=== PATIENT | male | born 1995 | race Caucasian/White ===

== ENCOUNTER 2017-11-14 21:52 | Emergency (ER) | payer OTHER ==
[2017-11-14 22:05] VITALS: BP 118/72; PULSE 84; TEMP 99; BMI 24.3
--- NOTE | 2017-11-15 00:05 | PDOC ---
History of Present Illness - General Chief Complaint: Injury Stated Complaint: LACERATION LEFT THUMB AT WORK Time Seen by Provider: 11/14/17 21:56 - History of Present Illness Initial Comments: This otherwise healthy 22-year-old man presents with laceration to the dorsal surface of the base of his left thumb. 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 While he was using a large, sharp cooking knife, he was accidentally bumped by a coworker and the blade of the knife cut his skin. Bleeding has been controlled by direct pressure. Patient denies paresthesias/numbness or weakness of the thumb. No other injury sustained. Patient is unsure when his last tetanus immunization was given but he will check with engineering manager regarding his most recent booster. No history of poor wound healing/immunocompromise/resistant organism colonization or infection. Past History - Past Medical History Allergies/Adverse Reactions: Allergies Allergy/AdvReac Type Severity Reaction Status Date / Time No Known Allergies Allergy Verified 11/14/17 21:57 Home Medications: Ambulatory Orders NK [No Known Home Medication] 11/14/17 COPD: No Other medical history: DENIES - Immunization History Immunization Up to Date: Yes - Suicide/Smoking/Psychosocial Hx Smoking History: Never smoked Have you smoked in the past 12 months: No Number of Cigarettes Smoked Daily: 0 Information on smoking cessation initiated: No Hx Alcohol Use: Yes Drug/Substance Use Hx: No Substance Use Type: None Review of Systems - Review of Systems Able to Perform ROS?: Yes Comments:: 12 point review of systems is negative except for what is noted in the history of present illness *Physical Exam - Vital Signs Last Vital Signs Temp Pulse Resp BP Pulse Ox 99 F 84 16 118/72 99 11/14/17 21:58 11/14/17 21:58 11/14/17 21:58 11/14/17 21:58 11/14/17 21:58 - Physical Exam Comments: GENERAL: HEAD: Normal with no signs of trauma. EYES: PERRLA, EOMI, sclera anicteric, conjunctiva clear. ENT: Ears normal, nares patent, oropharynx clear without exudates. Dry mucous membranes. NECK: Normal range of motion, supple without lymphadenopathy, JVD, or masses. LUNGS: Breath sounds equal, clear to auscultation bilaterally. No wheezes, and no crackles. HEART:Regular rate and rhythm, normal S1 and S2 without murmur, rub or gallop. ABDOMEN:.normal bowel sounds No guarding,tenderness or rebound.No masses No distention. EXTREMITIES: Normal range of motion, no edema. No clubbing or cyanosis. No erythema, or tenderness. NEUROLOGICAL: Cranial nerves II through XII grossly intact. Normal speech. No focal neurological deficits. MUSCULOSKELETAL: Back non-tender to palpation, no CVA tenderness SKIN: 2.5 cm linear, vertical full-thickness, nonbleeding laceration of the dorsal thumb, just proximal to the MCP joint Motor/sensory functioning intact; distal digit is warm and dry with excellent capillary refill No other lacerations or other injuries present except for a tiny (1 mm) abrasion just to the ulnar side of mid laceration Procedures - Laceration/Wound Repair Left Proximal Dorsal 1st digit Wound Length: to 2.5 cm Wound Explored: clean Wound's Depth, Shape: linear Irrigated w/ Saline: Yes Betadine Prep: No (Hibiclens/ethanol) Anesthesia: 1% Lidocaine Amount of Anesthetic (ccs): 2 Wound Repaired With: Sutures (none) Suture Size/Type: 5:0 Number of Sutures: 5 Layer Closure: No Sterile Dressing Applied: Yes Splint Applied: No Sling Applied: No Progress: Dorsum of the left thumb prepped using Hibiclens/ethanol and sterilely draped. Wound anesthetized with 2 mL of 1% lidocaine. Wound irrigated with 30 mL of sterile normal saline. Depth of wound carefully examined. Wound is full- thickness but there is no tendon or vascular damage evident. Wound edges closely apposed and sutured with 5 interrupted sutures of 5-0 nylon. Bacitracin and sterile gauze dressing applied. Patient tolerated procedure well *DC/Admit/Observation/Transfer Diagnosis at time of Disposition: Laceration of left thumb Qualifiers: Encounter type: initial encounter Damage to nail status: without damage Foreign body presence: without foreign body Qualified Code(s): S61.012A - Laceration without foreign body of left thumb without damage to nail, initial encounter - Discharge Dispostion Disposition: HOME Condition at time of disposition: Stable - Referrals - Patient Instructions Printed Discharge Instructions: How to Care for a Laceration After Repair Additional Instructions: Elevate left hand as much as possible over the next 24 hours No work tomorrow Keep original dressing in place, as dry as possible, for 2 days After first 2 days, protective dressing as needed during the day/open at night Can wet area briefly after 2 days, but no immersion until sutures removed Have sutures removed in one week Return to ER or see your doctor if area becomes red/swollen/painful - Post Discharge Activity Forms/Work/School Notes: Back to Work
== END 2017-11-15 00:53 | disposition home or self-care (01) ==
LOC: FER 21:52
PROC: 0HQGXZZ Repair Left Hand Skin, External Approach (ICD-10-PCS; principal; 2017-11-14)
DX: S61.012A Laceration without foreign body of left thumb without damage to nail, initial encounter (principal); W26.0XXA Contact with knife, initial encounter; Y93.G3 Activity, cooking and baking; Y92.9 Unspecified place or not applicable; Y99.0 Civilian activity done for income or pay
CPT/HCPCS: 99281-25

== ENCOUNTER 2020-02-07 10:29 | Emergency (ER) | payer OTHER ==
[2020-02-07 10:34] VITALS: BP 130/90; PULSE 92; TEMP 98.5; BMI 24.3
--- NOTE | 2020-02-07 11:02 | PDOC ---
Post Exposure HPI - General Chief Complaint: Blood/Body Fluid Exposure SJR Stated Complaint: EXPOSURE Time Seen by Provider: 02/07/20 10:34 History Source: Patient Exam Limitations: No Limitations - History of Present Illness Initial Comments: 02/07/20 10:56 HISTORY OF PRESENT ILLNESS: 24-year-old otherwise healthy male presents emergency department for evaluation of blood exposure. Patient works at the [employer] department here at [facility] and while moving a body at the [facility] had bloody fluid splashed off the body and onto his face. Patient reports he was wearing a surgical face mask at the time but no eye shield. Patient is unsure if he had contact to his eyes. Patient reports all the blood was on the sheet the patient was lying on. Source patient has negative hepatitis B and C with unknown HIV status. No recent travel or sick contacts. PAST MEDICAL HISTORY: Denies past medical history SURGICAL HISTORY: Denies ALLERGIES: No known drug allergies REVIEW OF SYSTEMS General/Constitutional: Denies fever or chills. Denies weakness, weight change. HEENT: Denies change in vision. Denies ear pain or discharge. Denies sore throat. Cardiovascular: Denies chest pain or shortness of breath. Respiratory: Denies cough, wheezing, or hemoptysis. Gastrointestinal: Denies nausea, vomiting, diarrhea or constipation. Denies rectal bleeding. Genitourinary: Denies dysuria, frequency, or change in urination. Musculoskeletal: Denies joint or muscle swelling or pain. Denies neck or back pain. Skin and breasts: Denies rash or easy bruising. Neurologic: Denies headache, vertigo, loss of consciousness, or loss of sensation. Psychiatric: Denies depression or anxiety. Endocrine: Denies increased thirst. Denies abnormal weight change. Hematologic/Lymphatic: Denies anemia, easy bleeding, or history of blood clots. Allergic/Immunologic: Denies hives or skin allergy. Denies latex allergy. PHYSICAL EXAM General Appearance: Well-appearing, appropriately dressed. No apparent distress, no intoxication. HEENT: EOMI, PERRLA, normal ENT inspection, normal voice, TMs normal, pharynx normal. No conjunctival pallor. No photophobia, scleral icterus. Integumentary: Appropriate color, dry, warm. No cyanosis, erythema, jaundice or rash Exposed Location: Bilateral: Face Assessing Significant Risk PEP: Yes Visibily Bloody Fluid Past History - Medical History Allergies/Adverse Reactions: Allergies Allergy/AdvReac Type Severity Reaction Status Date / Time No Known Allergies Allergy Verified 11/14/17 21:57 Home Medications: Ambulatory Orders NK [No Known Home Medication] 11/14/17 COPD: No - Immunization History Immunization Up to Date: Yes - Psycho-Social/Smoking History Smoking History: Never smoked Have you smoked in the past 12 months: No Number of Cigarettes Smoked Daily: 0 - Substance Abuse Hx (Audit-C & DAST Scrn) How often the patient has a drink containing alcohol: Never Score: In Men: 4 or > Positive; In Women: 3 or > Positive: 0 Screen Result (Pos requires Nsg. Audit-10AR): Negative *Physical Exam - Vital Signs Last Vital Signs Temp Pulse Resp BP Pulse Ox 98.5 F 92 H 18 130/90 99 02/07/20 10:31 02/07/20 10:31 02/07/20 10:31 02/07/20 10:31 02/07/20 10:31 Post Exposure - ED Protocol - Exposure Treatment Washing/Decontamination: Soap/Water Source Patient HIV Status:: Unknown Is PEP indicated?: No Prophylaxis for HIV discussed?: Yes Baseline bloods drawn prophylaxis:(use *Exposure-Hosp Emp): Yes - Referrals Employee Referred to Employee Health:: Yes Medical Decision Making - Medical Decision Making 02/07/20 11:00 A/P: 24-year-old male for evaluation status post body fluid exposure Physical exam is unremarkable Source patient was tested for hepatitis B and C which showed no antibodies. Unknown HIV status. As blood was pooled under the body, there is a low lik elihood of HIV transmission. Additionally patient is unsure whether or not he had a cutaneous exposure or if it was just blood on intact skin. Post exposure counseling provided. Baseline testing was performed Patient is undecided on postexposure medication. 02/07/20 11:19 Postexposure prophylaxis medication given to patient. Patient is aware he needs to follow-up with occupational health for continued evaluation of this exposure. I discussed the physical exam findings, ancillary test results and final diagnoses with the patient. I answered all of the patient's questions. The patient was satisfied with the care received and felt comfortable with the discharge plan and treatment plan. The patient will call their primary care physician within 24 hours to arrange follow-up and will return to the Emergency Department with any new, persistent or worsening symptoms. Portions of this note have been documented using voice recognition software. As a result, errors may occur in the fire hydrant mechanic process. Effort has been made to correct all grammatical and fire hydrant mechanic error, but some may have been missed which may produce sporadic inaccurate fire hydrant mechanic or nonsensical phrases. Discharge - Discharge Information Problems reviewed: Yes Clinical Impression/Diagnosis: Exposure to blood or body fluid Condition: Stable Disposition: HOME - Admission No - Follow up/Referral - Patient Discharge Instructions Additional Instructions: Avoid any sexual contact until medications are completed. Always have protected sex. Medications: Have enough Truvada dispensed to last all the course of this prophylaxis treatment You have 5 days of Raltegravir Drink plenty of fluids with these medications. Follow-up with PMD or [facility] for further instruction and organizing retesting as directed by physician to be seen in 72 hours. for medication evaluation and Further instruction. Your Hepatitis labs will not be available until tomorrow and you may call [phone] to leave a message for call back with these results. Generally HIV and hepatitis is retested every 3, 6, and 12 months. - Post Discharge Activity Work/Back to School Note: Back to Work
[2020-02-07] MEDS ORDERED: RALTEGRAVIR POTASSIUM 400 MG TAB PO ONE (11:27)
[2020-02-07] MEDS ORDERED: EMTRICITABINE 200MG/TENOFOVIR 300MG PO ONE (11:27)
[2020-02-07] MEDS ORDERED: HIV POST EXPOSURE PROPHYLAXIS KIT PO ONE (11:31)
[2020-02-07 11:47] LABS: BASO % 0.6 % (0-2.0); EOS % 1.9 % (0-4.5); HEMATOCRIT 44.6 % (35.4-49); HEMOGLOBIN 15.5 GM/dL (11.7-16.9); LYMPH % 29.2 % (8-40); MCH 31.8 pg (25.7-33.7); MCHC 34.6 g/dl (32.0-35.9); MEAN CELL VOLUME 91.7 fl (80-96); MEAN PLT VOLUME 8.4 fl (7.5-11.1); MONO % 10.3 % (3.8-10.2); PLATELET COUNT 263 K/MM3 (134-434); RBC 4.87 M/mm3 (4.00-5.60); RDW 12.4 % (11.9-15.9); WHITE BLOOD COUNT 7.9 K/mm3 (4.0-10.0)
[2020-02-07 12:07] LABS: ALBUMIN 4.2 g/dl (3.4-5.0); BILIRUBIN,TOTAL 1.1 mg/dL (0.2-1); BLOOD UREA NITROGEN 11.5 mg/dL (7-18); CALCIUM 9.5 mg/dL (8.5-10.1); CREATININE 1.1 mg/dL (0.55-1.3); PHOSPHOROUS 3.6 mg/dL (2.5-4.9); POTASSIUM 3.5 mmol/L (3.5-5.1); TOT PROT 7.2 g/dl (6.4-8.2); URIC ACID 6.2 mg/dL (2.6-7.2)
== END 2020-02-07 11:32 | disposition home or self-care (01) ==
LOC: JERFT 10:29
DX: Z77.21 Contact with and (suspected) exposure to potentially hazardous body fluids (principal)
CPT/HCPCS: 36415; 80053; 82465; 82977; 83615; 84100; 84478; 84550; 85025; 86317; 86704; 86706; 86803; 87340; 87389; 99283-25

== ENCOUNTER 2024-03-06 12:11 | Emergency (ER) | payer BC, OTHER ==
[2024-03-06 12:15] VITALS: BP 142/90; PULSE 100; RESP 18; TEMP 98; BMI 25.8
[2024-03-06] MEDS ORDERED: AMOX TR/POT CLAV 875MG/125MG TABLETS (FP) ONE (12:38)
[2024-03-06] MEDS ORDERED: LIDOCAINE HCL 2% (20ML MULTI-DOSE VIAL) ONE (12:38)
[2024-03-06] MEDS: AMOX TR/POT CLAV 875MG/125MG TABLETS (FP) PO ONE (12:41)
[2024-03-06] MEDS: LIDOCAINE HCL 2% (20ML MULTI-DOSE VIAL) INF STA (12:41)
== END 2024-03-06 12:55 | disposition home or self-care (01) ==
LOC: JERFT 12:11
PROC: 0H9FXZZ Drainage of Right Hand Skin, External Approach (ICD-10-PCS; principal; 2024-03-06)
DX: L03.011 Cellulitis of right finger (principal)
CPT/HCPCS: 99283-25